=== PATIENT | male | born 1960 | race African-American/Black ===

== ENCOUNTER 2019-05-12 14:24 | Emergency (ER) | payer MEDICAID, OTHER ==
[2019-05-12 14:42] VITALS: BP 121/80
[2019-05-12 15:00] LABS: BASOPHILS % (AUTO) 0.4 %; EOSINOPHILS # (AUTO) 0.2 10^3/uL (0.0-0.7); EOSINOPHILS % (AUTO) 2.5 %; LYMPHOCYTES # (AUTO) 3.1 10^3/uL (1.5-3.5); LYMPHOCYTES % (AUTO) 33.7 %; MEAN CORPUSCULAR HEMOGLOBIN 29.4 pg (27.0-31.0); MEAN CORPUSCULAR HGB CONC 32.3 g/dL (32.0-36.0); MEAN CORPUSCULAR VOLUME 90.8 fL (80.0-94.0); MEAN PLATELET VOLUME 11.1 fL (7.4-11.4); MONOCYTES # (AUTO) 0.7 10^3/uL (0.0-1.0); MONOCYTES % (AUTO) 7.2 %; NEUTROPHILS # (AUTO) 5.2 10^3/uL (1.5-6.6); NEUTROPHILS % (AUTO) 55.8 %; PLT - PLATELET COUNT 176 10^3/uL (130-450); RED BLOOD COUNT 4.77 10^6/uL (4.70-6.10); RED CELL DISTRIBUTION WIDTH 12.4 % (12.0-15.0); WHITE BLOOD COUNT 9.3 x10^3/uL (4.8-10.8)
[2019-05-12 15:23] LABS: BILIRUBIN,URINE NEGATIVE (NEGATIVE); GLUCOSE, URINE (UA) >=1000 mg/dL (NEGATIVE); KETONES,URINE (UA) NEGATIVE (NEGATIVE); LEUKOCYTE ESTERASE, URINE NEGATIVE (NEGATIVE); NITRITE,URINE NEGATIVE (NEGATIVE); OCCULT BLOOD,URINE NEGATIVE (NEGATIVE); PH,URINE 5.5 PH (5.0-7.5); PROTEIN,URINE NEGATIVE (NEGATIVE); UROBILINOGEN,URINE 0.2 (NORMAL) E.U./dL (NORMAL)
[2019-05-12 15:26] LABS: CLARITY,URINE CLEAR (CLEAR)
[2019-05-12 15:36] LABS: ALBUMIN 4.1 g/dL (3.2-5.5); ALBUMIN/GLOBULIN RATIO 1.1 (1.0-2.2); BILIRUBIN,TOTAL 0.7 mg/dL (0.2-1.0); CALCIUM 9.5 mg/dL (8.5-10.3); CREATININE 1.2 mg/dL (0.6-1.2); TOTAL PROTEIN 7.7 g/dL (6.7-8.2)
[2019-05-12] MEDS ORDERED: ELECTROLYTE-A SOLUTION 1,000 ML IV ONE (15:40)
[2019-05-12] MEDS ORDERED: INSULIN REGULAR HUMAN 100 UNIT/1 ML 10 ML MDV SUBQ STA (15:40)
--- NOTE | 2019-05-12 15:50 | ED Physician Documentation ---
History of Present Illness - Stated complaint Stated Complaint: ELEVATED BS - Chief complaint Chief Complaint: General - History obtained from History obtained from: Patient - History of Present Illness Timing: Today Pain level max: 0 Pain level now: 0 Improved by: nothing Worsened by: nothing - Additonal information Additional information: 59-year-old male states that his blood sugar was higher than usual today. He states that his blood sugars normally in the 300s but it was over 500 today. He is a thinks that he takes metformin. He does not know any other medications. He does not know who his doctor is. States that he lives at [place] home. No abdominal pain. No nausea or vomiting. Review of Systems Constitutional: denies: Fever, Chills Throat: denies: Sore throat Respiratory: denies: Cough GI: denies: Abdominal Pain, Nausea, Vomiting, Diarrhea Skin: denies: Rash Musculoskeletal: denies: Neck pain, Back pain Neurologic: denies: Headache PD PAST MEDICAL HISTORY - Past Medical History Past Medical History: Yes Cardiovascular: Hypertension Endocrine/Autoimmune: Type 2 diabetes - Present Medications Home Medications: Ambulatory Orders Medication Instructions Recorded Confirmed Aripiprazole [Abilify] 10 mg PO DAILY 05/12/19 05/12/19 QUEtiapine [SEROquel] 200 mg PO DAILY 05/12/19 05/12/19 metFORMIN [Glucophage] 500 mg PO BIDWM #20 tablet 05/12/19 metFORMIN [Glucophage] 500 mg PO DAILY 05/12/19 05/12/19 - Allergies Allergies/Adverse Reactions: Allergies Allergy/AdvReac Type Severity Reaction Status Date / Time No Known Drug Allergies Allergy Verified 05/12/19 14:42 - Living Situation Living Arrangement: reports: Assisted living - Social History Does the pt have substance abuse?: No - Family History Family history: reports: Non contributory PD ED PE NORMAL - Vitals Vital signs reviewed: Yes - General General: Alert and oriented X 3, No acute distress, Well developed/nourished - HEENT HEENT: PERRL, Moist mucous membranes - Neck Neck: Supple, no meningeal sign - Cardiac Cardiac: RRR, Strong equal pulses - Respiratory Respiratory: No respiratory distress, Clear bilaterally - Abdomen Abdomen: Soft, Non tender, Non distended - Derm Derm: Warm and dry - Extremities Extremities: No edema, No calf tenderness / cord - Neuro Neuro: Alert and oriented X 3 - Psych Psych: Normal mood, Normal affect Results - Vitals Vitals: Vital Signs - 24 hr 05/12/19 14:36 Temperature 36.8 C Heart Rate 71 Respiratory 18 Rate Blood Pressure 121/80 O2 Saturation 96 Oxygen O2 Source Room air - Labs Labs: Laboratory Tests 05/12/19 05/12/19 05/12/19 14:40 14:55 14:55 WBC 9.3 RBC 4.77 Hgb 14.0 Hct 43.3 MCV 90.8 MCH 29.4 MCHC 32.3 RDW 12.4 Plt Count 176 MPV 11.1 Neut # (Auto) 5.2 Lymph # (Auto) 3.1 [place] # (Auto) 0.7 Eos # (Auto) 0.2 Baso # (Auto) 0.0 Absolute Nucleated RBC 0.00 Nucleated RBC % 0.0 VBG pH VBG pCO2 VBG pO2 VBG HCO3 VBG Total CO2 VBG O2 Saturation VBG Base Excess Sodium 135 Potassium 4.7 Chloride 98 L Carbon Dioxide 25 Anion Gap 12.0 BUN 17 Creatinine 1.2 Estimated GFR (MDRD) 75 L Glucose 594 H* POC Whole Bld Glucose 556 H* Calcium 9.5 Total Bilirubin 0.7 AST 24 ALT 31 Alkaline Phosphatase 78 Total Protein 7.7 Albumin 4.1 Globulin 3.6 Albumin/Globulin Ratio 1.1 Lipase 30 Urine Color Urine Clarity Urine pH Ur Specific [place] Urine Protein Urine Glucose (UA) Urine Ketones Urine Occult Blood Urine Nitrite Urine Bilirubin Urine Urobilinogen Ur Leukocyte Esterase Ur Microscopic Review Urine Culture Comments Serum Ketones 05/12/19 05/12/19 05/12/19 14:55 15:18 15:48 WBC RBC Hgb Hct MCV MCH MCHC RDW Plt Count MPV Neut # (Auto) Lymph # (Auto) [place] # (Auto) Eos # (Auto) Baso # (Auto) Absolute Nucleated RBC Nucleated RBC % VBG pH 7.370 VBG pCO2 39.2 L VBG pO2 156.5 H VBG HCO3 22.2 L VBG Total CO2 23.4 L VBG O2 Saturation 98.8 H VBG Base Excess -2.8 L Sodium Potassium Chloride Carbon Dioxide Anion Gap BUN Creatinine Estimated GFR (MDRD) Glucose POC Whole Bld Glucose Calcium Total Bilirubin AST ALT Alkaline Phosphatase Total Protein Albumin Globulin Albumin/Globulin Ratio Lipase Urine Color YELLOW Urine Clarity CLEAR Urine pH 5.5 Ur Specific [place] <=1.005 Urine Protein NEGATIVE Urine Glucose (UA) >=1000 H Urine Ketones NEGATIVE Urine Occult Blood NEGATIVE Urine Nitrite NEGATIVE Urine Bilirubin NEGATIVE Urine Urobilinogen 0.2 (NORMAL) Ur Leukocyte Esterase NEGATIVE Ur Microscopic Review NOT INDICATED Urine Culture Comments NOT INDICATED Serum Ketones NEGATIVE PD MEDICAL DECISION MAKING - ED course Complexity details: reviewed results, re-evaluated patient, considered differential, d/w patient ED course: 59-year-old male with diabetes mellitus. He is only on metformin 500 mg once a day, will increase this to twice a day. Given IV fluids and insulin here. Blood sugar decreased. He will follow-up closely with his doctor this week to have his medications further adjusted. Patient counseled regarding signs and symptoms for which I believe and urgent re-evaluation would be necessary. Patient with good understanding of and agreement to plan and is comfortable going home at this time This document was made in part using voice recognition software. While efforts are made to proofread this document, sound alike and grammatical errors may occur. Departure - Departure Disposition: 01 Home, Self Care Clinical Impression: Hyperglycemia due to type 2 diabetes mellitus Qualifiers: Diabetes mellitus terminal press operator insulin use: without terminal press operator use Qualified Code(s): E11.65 - Type 2 diabetes mellitus with hyperglycemia Condition: Good Instructions: ED Hyperglycemia Diabetic Follow-Up: Deander Leonard MD [Provider Admit Priv/Credential] - Within 3 Days Prescriptions: metFORMIN [Glucophage] 500 mg PO BIDWM #20 tablet Comments: We will increase your metformin to 1 pill twice a day. Follow-up with your doctor within 3 days for further adjustment of your medications. Return if you worsen.
[2019-05-12 15:53] LABS: VBG PCO2 39.2 mmHg (41-51); VBG PH 7.37 (7.31-7.41); VBG PO2 156.5 mmHg (25-47)
[2019-05-12 15:54] LABS: VBG BASE EXCESS -2.8 mmol/L (-2 - +2); VBG TOTAL CO2 23.4 mmol/L (24-29)
== END 2019-05-12 16:54 | disposition home or self-care (01) ==
LOC: ED 14:24
DX: E11.65 Type 2 diabetes mellitus with hyperglycemia (principal); I10 Essential (primary) hypertension; Z79.84 Long term (current) use of oral hypoglycemic drugs
CPT/HCPCS: 36415; 80053; 81003; 82009; 82803; 83690; 85025; 96360; 99283; 99284; J1815; 81001; 87086

== ENCOUNTER 2019-05-22 09:00 | Outpatient (CLI) | payer MEDICAID ==
[2019-05-22 18:26] LABS: CALCIUM 9.8 mg/dL (8.5-10.3); CREATININE 0.9 mg/dL (0.6-1.2)
[2019-05-22 19:57] LABS: HB2 TOTAL 15.1 g/dL; HEMOGLOBIN A1C 1.75 g/dL; HEMOGLOBIN A1C % 12.8 % (4.6-6.2)
== END 2019-05-22 23:59 | disposition home or self-care (01) ==
LOC: LAB.R 09:00
PROVIDERS: ATTEND Internal Medicine
DX: I10 Essential (primary) hypertension (principal); E11.9 Type 2 diabetes mellitus without complications
CPT/HCPCS: 80048; 83036

== ENCOUNTER 2019-10-30 11:33 | Outpatient (CLI) | payer MEDICAID ==
[2019-10-30 19:11] LABS: ALBUMIN 4.6 g/dL (3.2-5.5); ALBUMIN/GLOBULIN RATIO 1.3 (1.0-2.2); BILIRUBIN,TOTAL 0.7 mg/dL (0.2-1.0); CALCIUM 9.8 mg/dL (8.5-10.3); CREATININE 1.1 mg/dL (0.6-1.2); TOTAL PROTEIN 8.1 g/dL (6.7-8.2)
[2019-10-30 19:49] LABS: HB2 TOTAL 14.7 g/dL; HEMOGLOBIN A1C 0.69 g/dL; HEMOGLOBIN A1C % 6.4 % (4.6-6.2)
== END 2019-10-30 23:59 | disposition home or self-care (01) ==
LOC: LAB.N 11:33
PROVIDERS: ATTEND Internal Medicine
DX: E11.21 Type 2 diabetes mellitus with diabetic nephropathy (principal)
CPT/HCPCS: 36415; 80053; 83036